=== PATIENT | female | born 1970 | race Caucasian/White ===

== ENCOUNTER 2023-04-07 07:40 | Emergency (ER) | payer OTHER ==
[~2023-04-07] VITALS: Ht 160 cm; Wt 61.3 kg
[2023-04-07 08:21] LABS: BASOPHILS % (AUTO) 0.9 % (0.0-2.0); EOSINOPHILS % (AUTO) 1.2 % (1.0-6.0); HEMATOCRIT 44.2 % (36-46); HEMOGLOBIN 14.7 g/dL (12.0-16.0); LYMPHOCYTES # (AUTO) 1.3 K/uL (1.0-4.8); LYMPHOCYTES % (AUTO) 22.8 % (22.0-44.0); MEAN CORPUSCULAR HEMOGLOBIN 32.2 pg (26.0-34.0); MEAN CORPUSCULAR HGB CONC 33.2 G/dL (31.0-37.0); MEAN CORPUSCULAR VOLUME 97 fL (80-100); MONOCYTES # (AUTO) 0.5 K/uL (0.1-1.0); MONOCYTES % (AUTO) 7.8 % (2.0-9.0); NEUTROPHILS # (AUTO) 3.9 K/uL (1.8-7.7); NEUTROPHILS % (AUTO) 67.3 % (40.0-70.0); PLATELET COUNT (AUTO) 294 K/uL (150-450); RED BLOOD CELL COUNT(AUTO) 4.56 MIL/uL (4.00-5.20); RED CELL DISTRIBUTION WIDTH 13.8 % (11.5-14.5)
[2023-04-07 08:28] LABS: ANION GAP 10 mmol/L (8-16); CALCIUM, TOTAL 9.2 mg/dL (8.8-10.5); CARBON DIOXIDE 27 mmol/L (22-29); CHLORIDE 105 mmol/L (98-107); GLOMERULAR FILTR. RATE CALC > 60 mL/min (>60); GLUCOSE,RANDOM 107 mg/dL (70-110); POTASSIUM 4.8 mmol/L (3.5-5.1); SODIUM SERUM 142 mmol/L (136-145)
[2023-04-07 08:31] LABS: B-TYPE NATRIURETIC PEPTIDE 7 pg/mL (0-100)
[2023-04-07 08:33] LABS: PROTHROMBIN TIME 10.6 SEC (9.4-11.6)
[2023-04-07] MEDS ORDERED: MAG HYDROX/AL HYDROX/SIMETH ES 30 ML SUSPENSION UDCUP PO ONE (08:45)
[2023-04-07] MEDS ORDERED: FAMOTIDINE 20 MG TABLET PO ONE (08:45)
[2023-04-07 08:53] LABS: ALANINE AMINOTRANSFERASE 655 U/L (12-78); ALBUMIN 3.9 g/dL (3.4-5.0); ALKALINE PHOSPHATASE 106 U/L (46-116); ASPARTATE AMINOTRANSFERASE 276 U/L (15-37); BILIRUBIN,TOTAL 0.3 mg/dL (0.1-1.0); CREATINE KINASE, TOTAL ONLY 184 U/L (26-192)
[2023-04-07 10:37] VITALS: BP 131/74
== END 2023-04-07 10:40 | disposition home or self-care (01) ==
LOC: EMS 07:45
DX: R10.13 Epigastric pain (principal); K21.9 Gastro-esophageal reflux disease without esophagitis; R74.01 Elevation of levels of liver transaminase levels; F17.210 Nicotine dependence, cigarettes, uncomplicated
CPT/HCPCS: 71045; 80053; 82550; 83880; 84484; 85025; 85610; 85730; 93005; 99285